=== PATIENT | male | born 1985 | race African-American/Black ===

== ENCOUNTER 2017-12-08 14:38 | Emergency (ER) | payer SELFPAY ==
[2017-12-08] MEDS ORDERED: predniSONE TAB* 20 MG PO ONE (14:56)
--- NOTE | 2017-12-08 15:00 | ED ---
Allergic Reaction/Systemic - HPI Summary HPI Summary: The pt is a 32 y/o male BIBA to [facility] c/o of L ear pain s/p a bee sting. He got stung at 14:30 today while moving items from a porch. He was given Benadryl 50 IV and Epinephrine 0.3 IM en route to relief. He notes L facial numbness, sleep deprivation, lightheadedness, and throat tightening. The pt also reports recent stress resulting in increased ETOH consumption in the last 2 weeks. He denies any SI/HI and hallucinations. - History of Current Complaint Chief Complaint: EDAllergicReaction Hx Obtained From: Patient Onset/Duration: Sudden Onset - 14:30, Still Present Timing: Constant Severity Currently: Moderate Pain Intensity: 7 Pain Scale Used: 0-10 Numeric Location: Discrete @ Alleviating Factor(s): Epinephrine, Other - Benadryl Associated Signs And Symptoms: Positive: Negative - Si/HI, hallucinations, Lightheadedness, Throat Tightening, Other: - L facial numbness, sleep deprivation - Related Hx Possible Reaction To: Animal - Bee sting, Other: - Allergies/Home Medications Allergies/Adverse Reactions: Allergies Allergy/AdvReac Type Severity Reaction Status Date / Time bee venom protein (honey bee) Allergy Anaphylatic Verified 12/08/17 15:17 Shock PMH/Surg Hx/FS Hx/Imm Hx Previously Healthy: Yes Endocrine/Hematology History: Denies: Hx Diabetes Cardiovascular History: Denies: Hx Angina, Hx Coronary Artery Disease Respiratory History: Denies: Hx Asthma History: Denies: Hx Acute Renal Failure Musculoskeletal History: Denies: Hx Rheumatoid Arthritis Opthamlomology History: Denies: Hx Legally Blind EENT History: Denies: Hx Deafness Neurological History: Denies: Hx CVA - Surgical History Other Surgical History: None Infectious Disease History: No Infectious Disease History: Denies: Traveled Outside the [place] in Last 30 Days - Family History Known Family History: Negative: Seizure Disorder, Blood Disorder - Social History Occupation: Employed Full-time Lives: Alone Alcohol Use: Weekly Substance Use Type: Reports: None Smoking Status (MU): Heavy Every Day Tobacco Smoker Review of Systems Positive: Other - Positive: Sleep deprivation , lightheadedness, Negative: Blurred Vision Positive: Ear Ache, Other - Positive: throat tightening, L ear pain. Negative: Sore Throat Negative: Chest Pain Negative: Shortness Of Breath Negative: Abdominal Pain Negative: hematuria Negative: Decreased ROM, Edema Negative: Bruising Positive: Numbness - of the L face Positive: Other - Negative: SI/HI, Hallucinations All Other Systems Reviewed And Are Negative: No Physical Exam - Summary Physical Exam Summary: Appearance: Alert, conversive, nontoxic appearing Skin: Warm, dry, no mottling, no rashes, no contusions HEENT: EOMI, PERRL, moist mucous membranes Neck: No masses on the neck, supple Respiratory: Clear to auscultation, breath sounds present, no rales, no rhonchi , no wheezes Cardiovascular: RRR, pulses are symmetrical in both lower and upper extremities Abdomen: Soft, non-tender Bowel Sounds: Present Musculoskeletal: No CVA tenderness, no obvious deformity, moving all extremities in a grossly normal manner Neurological: A&Ox3, CN II-XII Intact, moving all extremities symmetrically Psychiatric: Normal affect and mood Triage Information Reviewed: Yes Vital Signs On Initial Exam: Initial Vitals Temp Pulse Resp BP Pulse Ox 98.2 F 91 17 122/83 98 12/08/17 14:39 12/08/17 14:39 12/08/17 14:39 12/08/17 14:39 12/08/17 14:39 Vital Signs Reviewed: Yes Appearance: Positive: Well-Appearing Head/Face: Positive: Normal Head/Face Inspection Eyes: Positive: Normal ENT: Positive: Normal ENT inspection Neck: Positive: Supple Diagnostics - Vital Signs Vital Signs Temp Pulse Resp BP Pulse Ox 12/08/17 14:45 82 14 128/77 96 12/08/17 14:39 98.2 F 91 17 122/83 98 - Laboratory Lab Statement: Any lab studies that have been ordered have been reviewed, and results considered in the medical decision making process. Allergic Reaction Course/Dx - Course Course Of Treatment: A 32 year-old M presents to the ED with a CC a reaction to a bee sting at 14:30 today. He was given Benadryl 50 IV and Epinephrine 0.3 IM en route to relief. He notes L facial numbness, sleep deprivation, lightheadedness, and throat tightening. In the ED course, pt was given Prednisone which improved the symptoms. Patient will be discharged with a final Dx of a general allergic reaction. I discussed the plan with the pt and he is agreeable . Allergies noted. - Diagnoses Provider Diagnoses: Allergic reaction Discharge - Sign-Out/Discharge Documenting (check all that apply): Patient Departure - DC - Discharge Plan Condition: Stable Disposition: HOME Prescriptions: EPINEPHrine [Epipen] 0.3 mg IJ SEE INSTRUCTIONS #1 auto.injct EPINEPHrine [Epipen] 0.3 mg IJ SEE INSTRUCTIONS #1 auto.injct MDD 1 Patient Education Materials: General Allergic Reaction (ED) Referrals: [facility] [Provider Group] Additional Instructions: Return to ED for any new or worsening symptoms - Billing Disposition and Condition Condition: STABLE Disposition: Home - Attestation Statements Document Initiated by Demetriusibmichelle: Yes Documenting Scribe: Mary Anne Varela Provider For Whom Naida is Documenting (Include Credential): Dr. Tabatha Bell MD Scribe Attestation: Mary Anne Del Angel , scribed for Dr. Tabatha Bell MD on 12/13/17 at 1033. Scribe Documentation Reviewed: Yes Provider Attestation: The documentation as recorded by the scribMary Anne martinez accurately reflects the service I personally performed and the decisions made by , Dr. Tabatha Bell MD
[2017-12-08 15:21] VITALS: BP 120/75
== END 2017-12-08 15:20 | disposition home or self-care (01) ==
LOC: ED 14:38
DX: T78.40XA Allergy, unspecified, initial encounter (principal); H92.02 Otalgia, left ear; R42 Dizziness and giddiness; F17.210 Nicotine dependence, cigarettes, uncomplicated; W57.XXXA Bitten or stung by nonvenomous insect and other nonvenomous arthropods, initial encounter
CPT/HCPCS: 99282; J7512

== ENCOUNTER → 2018-02-21 12:36 | Emergency (ER) | payer SELFPAY ==
[~2018-02-21 12:36] MED LIST: Amoxicillin/Clavulanate TAB* 875 MG PO ONE; Ibuprofen TAB* 800 MG PO ONE; Tetan/Diph/Pertus SYR(Tdap)* 0.5 ML SYR(BOOSTRIX) use SYR IM ONE
[2018-02-21 12:41] VITALS: BP 148/102
--- NOTE | 2018-02-21 18:13 | ED ---
Bite Injury/Animal - HPI Summary HPI Summary: Patient is a 32-year-old male who presents emergency department who presents emergency department for dog bite to his right wrist that occurred last night. Patient states that his roommate's dog bit him last night when they were playing. He is unsure of the dog's immunization status but friend states that dog does not leave the house. Patient believes he received a tetanus vaccination when he started his new job over the last 6 months. Patient would like to wait and check with his job tomorrow for tetanus immunization. Patient has no past medical history. Symptoms are mild in severity. Touching the area makes symptoms worse. Rest makes symptoms better. - History of Current Complaint Chief Complaint: EDAnimalBite Stated Complaint: DOG BITE Time Seen by Provider: 02/21/18 14:44 Hx Obtained From: Patient Pain Intensity: 10 - Allergies/Home Medications Allergies/Adverse Reactions: Allergies Allergy/AdvReac Type Severity Reaction Status Date / Time bee venom protein (honey bee) Allergy Anaphylatic Verified 02/21/18 12:41 Shock PMH/Surg Hx/FS Hx/Imm Hx Previously Healthy: Yes Endocrine/Hematology History: Denies: Hx Diabetes Cardiovascular History: Denies: Hx Angina, Hx Coronary Artery Disease Respiratory History: Denies: Hx Asthma History: Denies: Hx Acute Renal Failure Musculoskeletal History: Denies: Hx Rheumatoid Arthritis Sensory History: Denies: Hx Legally Blind, Hx Deafness Opthamlomology History: Denies: Hx Legally Blind Neurological History: Denies: Hx CVA Infectious Disease History: No Infectious Disease History: Denies: Traveled Outside the [place] in Last 30 Days - Family History Known Family History: Negative: Seizure Disorder, Blood Disorder - Social History Occupation: Employed Full-time Lives: Dormitory/Roommates Alcohol Use: Daily Substance Use Type: Reports: None Smoking Status (MU): Heavy Every Day Tobacco Smoker Review of Systems Positive: Other - Rihgt hand pain Negative: Weakness, Paresthesia, Numbness All Other Systems Reviewed And Are Negative: Yes Physical Exam Triage Information Reviewed: Yes Vital Signs On Initial Exam: Initial Vitals Temp Pulse Resp BP Pulse Ox 98.9 F 102 16 148/102 98 02/21/18 12:39 02/21/18 12:39 02/21/18 12:39 02/21/18 12:39 02/21/18 12:39 Vital Signs Reviewed: Yes Appearance: Positive: Well-Appearing - Pt. sitting on bed in NAD. Skin: Positive: Warm, Dry Head/Face: Positive: Normal Head/Face Inspection Eyes: Positive: Normal, EOMI Neck: Positive: Supple Musculoskeletal: Positive: Other - Small abrasion noted to the dorsal aspect of the distal forearm. Puncture wound noted on the palmar aspect. Dorsum of wrist is mild swollen. No overlying erythema. Can fully flex and extend all fingers. Neurological: Positive: Normal, CN Intact II-III Psychiatric: Positive: Affect/Mood Appropriate Diagnostics - Vital Signs Vital Signs Temp Pulse Resp BP Pulse Ox 02/21/18 12:39 98.9 F 102 16 148/102 98 - Laboratory Lab Statement: Any lab studies that have been ordered have been reviewed, and results considered in the medical decision making process. Bite Injury Course/Dx - Course Course Of Treatment: Patient presenting with dog bite from his roommate's dog that occurred last night. Animal bite form filled out. Rabies vaccine not indicated. Patient would like to wait and check on his tetanus immunization and declines it today and ER. Wound was irrigated and dressed. No signs of deep space infection or tenosynovitis. Patient is given a dose of Augmentin and ibuprofen. X-ray was obtained to rule out foreign body which was negative, reading per radiology. Prescription for Motrin and Augmentin sent to pharmacy. Advised patient to ice and elevate intermittently. Advised to schedule a follow-up appointment for orthopedics or the [facility] for wound check in 2 days. Advised to return to the ER for increased pain, swelling, redness, fever, difficulty moving fingers. Patient understands and agrees with plan. - Diagnoses Differential Diagnosis/HQI/PQRI: Positive: Cellulitis, Laceration, Puncture, Tenosynovitis Provider Diagnosis: Dog bite Discharge - Sign-Out/Discharge Documenting (check all that apply): Patient Departure - Discharge Plan Condition: Good Disposition: HOME Prescriptions: Amoxicillin/Clavulanate TAB* [Augmentin TAB 875*] 875 mg PO BID #20 tab Ibuprofen TAB* [Motrin TAB* 800 MG] 800 mg PO Q8H #20 tab Patient Education Materials: Animal Bite (ED) Referrals: [facility] [Outside] Keila Esteban MD [Medical Doctor] - Additional Instructions: Schedule a follow up appointment with orthopedics for wound check Take medication as directed Ice and elevate frequently Return to ER for increased pain, fever, redness, difficultly moving fingers - Billing Disposition and Condition Condition: GOOD Disposition: Home
== END | disposition home or self-care (01) ==
LOC: ED 12:36
DX: S61.531A Puncture wound without foreign body of right wrist, initial encounter (principal); W54.0XXA Bitten by dog, initial encounter; Y93.83 Activity, rough housing and horseplay; Y92.009 Unspecified place in unspecified non-institutional (private) residence as the place of occurrence of the external cause; Z91.030 Bee allergy status; F17.200 Nicotine dependence, unspecified, uncomplicated
CPT/HCPCS: 99282; A9270-GY